=== PATIENT | female | born 1945 | race Caucasian/White ===

== ENCOUNTER 2018-02-27 13:28 | Emergency (ER) | payer OTHER, BC ==
[2018-02-27] MEDS ORDERED: predniSONE 20 MG TAB ONE (13:52)
[2018-02-27] MEDS ORDERED: LEVALBUTEROL 1.25 MG/3 ML NEB ONE (13:52)
[2018-02-27 14:21] LABS: Absolute Lymphocytes (CBC) 1.9 K/uL (0.7-4.9); Absolute Monocytes 0.5 K/uL (0.1-1.3); Absolute Neutrophil 7.8 K/uL (1.8-8.0); Basophils % 0.7 % (0-1.3); Eosinophils % 0.1 % (0-4.4); Hematocrit 39.2 % (36.0-45.0); Lymphocytes % 18.4 % (15.3-44.8); MCH 26.7 pg (27.0-35.0); MCV 80.8 fL (80-100); MPV 8.8 fL (7.6-11.3); Monocytes % 5.3 % (3.3-12.3); RBC Red Blood Cell Count 4.85 M/uL (3.86-4.86)
--- OUTSIDE RECORDS SUMMARY | 2018-02-27 14:28 | XMS REPORT | Continuity of Care Document ---
:1945 Author Organization [facility] Address [address] [place] [address] Phone Unavailable Care Team Providers Name Role Phone KARIME ACEVES Chris Primary Care Physician Insurance Providers Guarantor Gissel Morejon Address [address] [place] [phone] Email NA Payer Medicare Policy Number [id number] Subscriber's Name Gissel Morejon Relationship Self / Same As Patient Group Number NA Group Name NA Payer [facility] Policy Number [id number] Subscriber's Name Gissel Morejon A Relationship Self / Same As Patient Group Number [id number] Group Name MED SUPP/PLAN F Advance Directives Directive Response Recorded Date/Time Advance Directive on File No 02/12/18 9:58am Name of Surrogate/Decision Maker BRIA LINK 02/12/18 10:41am Patient/Family Given Education Material R/T Y - 02/12/18...[place] 02/12/18 10: 40am Directives? Chief Complaint and Reason for Visit Chief Complaint Skin Rash/Abscess/Wound Reason for Visit Skin tear of right forearm without complication Problems Active ProblemsNo active problem information available. Past Problems Medical Problem Onset Date Status Cellulitis Unknown Acute Skin lesion Unknown Acute Skin tear of right forearm without complication Unknown Acute Medications No medication information available. Social History Smoking Status Start Date Stop Date Former smoker Hospital Discharge Instructions No hospital discharge instruction information available. Plan of Care Discharge Date 02/12/18 11:02am Instructions/Education Provided Skin Tear Care, [id number] Forms Provided Portal Welcome Letter Prescriptions See Medication Section Referrals YOLA KARIME Perez Address: [address] [facility] [address] [place] [address] Additional Instructions/Education KEEP AREA TO RIGHT FOREARM CLEAN AND DRY DO NOT PULL OFF STERI STRIPS ALLOW THEM TO FALL OFF ON THEIR OWN. USE TYLENOL OR MOTRIN FOR PAIN DIRECTED. FOLLOW UP WITH A PRIMARY CARE PROVIDER IN 2-3 DAYS RETURN TO THE ER IF YOUR SYMPTOMS WORSEN Functional Status No functional status information available. Allergies, Adverse Reactions, Alerts Allergen Type Severity Reaction Status Last Updated Penicillins ([id number]) Allergy Unknown RASH Active 12/08/16 Immunizations No immunization information available. Vital Signs Acute Vital Signs Vital Response Date/Time Blood Pressure 128/80 mm Hg 02/12/2018 10:39am Pulse Pulse Rate (adult) 85 beats per minute (60 - 100) 02/12/2018 10:39am Respiratory Rate 18 breaths per minute (10 - 24) 02/12/2018 10:39am Temperature Source Oral 02/12/2018 10:39am Height 5 ft 2 in 02/12/2018 9:58am Weight 145 lb 02/12/2018 9:58am Body Mass Index 26.5 kg/m^2 02/12/2018 9:58am Results No relevant diagnostic test, laboratory data and/or discharge summary information available. Procedures No procedure information available. Encounters Encounter Location Arrival/Admit Date Discharge/Depart Date Attending Provider Departed [place] 02/12/18 9:53am 02/12/18 11:02am MICKEY ENCARNACION MD Emergency Room [facility] Recent Diagnosis
--- OUTSIDE RECORDS SUMMARY | 2018-02-27 14:28 | XMS REPORT | Clinical Summary ---
:1945 Author Organization [facility] Address [address] [place] [address] Care Team Providers Name Role Phone Jarocho Bill DO Primary Care Provider Allergies Active Allergy Reactions Severity Noted Date Comments Iodine And Iodide Containing Products Anaphylaxis High 08/03/2017 IV Contrast Penicillins 08/03/2017 Medications Medication Sig Dispensed Refills Start Date End Date Status citalopram (CeleXA) Take 40 mg by 1 07/11/2017 Active 40 MG tablet mouth daily. ADVAIR DISKUS 250-50 INHALE 1 1 06/26/2017 Active mcg/dose DISKUS PUFF(S) 2 TIMES A DAY INHALED 90 DAYS SPIRIVA RESPIMAT 2.5 USE 2 PUFFS 3 07/05/2017 Active mcg/actuation mist ONCE A DAY INHALED cholecalciferol, Take 1,000 0 Active vitamin D3, (VITAMIN Units by mouth D3) 1,000 unit tablet daily. aspirin (ECOTRIN) 81 Take 81 mg by 0 Active MG enteric coated mouth daily. tablet UNABLE TO FIND prevagen (OTC) 0 Active memory loss L.acid/L.casei/B.bif/ Take by mouth. 0 Active B.erin/FOS (PROBIOTIC BLEND ORAL) gabapentin Take 1 capsule 90 capsule 0 09/05/2017 09/12/2017 (NEURONTIN) 300 mg (300 mg total) capsule by mouth 3 (three) times a day for 7 days. acetaminophen Take 2 tablets 30 tablet 0 09/05/2017 09/10/2017 (TYLENOL EXTRA (1,000 mg STRENGTH) 500 MG total) by mouth tablet 3 (three) times a day for 5 days. nicotine (NICODERM Place 1 patch 30 patch 0 09/06/2017 10/06/2017 CQ) 7 mg/24 hr on the skin daily for 30 days. naproxen (NAPROSYN) Take 1 tablet 6 tablet 0 09/05/2017 09/08/2017 500 MG tablet (500 mg total) by mouth 2 (two) times a day with meals for 3 days. gabapentin Take 1 capsule 90 capsule 1 10/12/2017 12/11/2017 (NEURONTIN) 300 mg (300 mg total) capsuleIndications: by mouth 3 Neuropathic pain (three) times a day for 60 days. Active Problems Problem Noted Date Lung nodule 09/04/2017 Encounters Date Type Specialty Care Team Description 10/12/2017 Office Visit Cardiothoracic [facility] Neuropathic pain Surgery MD Candido (Primary Dx) 09/08/2017 Telephone Cardiothoracic Marielena Craig, [place] 09/07/2017 Telephone Cardiothoracic [facility] Surgery MD Candido 09/04/2017 Anesthesia Event Cardiothoracic Charla Coates Surgery 09/04/2017 Surgery Cardiooracic [facility] ROBOTIC ASSISTED Surgery MD Candido THORACOSCOPIC THERAPEUTIC LEFT UPPER LOBE, WEDGE RESECTION, MEDIASTINAL LYMPH NODE DISSECTION 09/04/2017 [facility] Cardiology [facility] Lung nodule - Encounter MD Candido 09/05/2017 08/31/2017 Lab Lab [facility] Lung nodule; MD Candido Pre-op testing 08/31/[address] [facility] Encounter MD Candido [facility] Surgery MD Candido Pre-op testing 08/22/2017 Telephone Cardiothoracic Emma Stubbs[place] 08/18/2017 Orders Only Cardiothoracic Provider, Surgery MD Mickey 08/18/2017 Telephone Cardiothoracic Marielena Craig, Surgery [place] 08/18/2017 Telephone Cardiothoracic Marielena Craig, Surgery [place] 08/16/2017 Telephone Cardiothoracic Emma Stubbs, Surgery [place] 08/08/2017 Telephone Cardiothoracic Marielena Craig, Surgery [place] 08/04/2017 Telephone Cardiothoracic Marielena Craig, Surgery [place] 08/04/2017 Telephone Cardiothoracic Jennifer, Surgery Kim Villa NP 08/04/2017 Orders Only Cardiothoracic Provider, Surgery MD Mickey 08/03/2017 [facility] Pulmonology Ad [facility] Encounter MD Candido 08/03/2017 [facility] Radiology Ad Leon Encounter MD Candido 08/03/2017 [facility] Radiology Ad Leon Encounter MD Candido 08/03/2017 [facility] Radiology Ad Leon Encounter MD Candido 08/03/2017 [facility] Radiology dA Leon Encounter MD Candido 08/03/2017 [facility] Radiology Ad Leon Encounter MD Candido 08/03/2017 [facility] Radiology Ad Leon Encounter MD Candido 08/03/2017 [facility] MD Candido Error) 08/03/2017 [facility] Radiology Ad [facility] Encounter MD Candido 08/03/2017 Office Visit Cardiothoracic [facility] Lung nodule (Primary Dx ); Surgery MD Candido Shortness of breath 08/03/2017 Orders Only Cardiothoracic ProviderEnder MD 07/31/2017 Telephone Cardiothoracic Marielena Craig Surgery [facility] 07/26/2017 Orders Only Cardiothoracic Provider, Surgery MD Mickey after 02/26/2017 Family History Medical History Relation Name Comments Hypertension Father Alzheimer's disease Maternal Grandmother Alzheimer's disease Mother Heart disease Mother Lung cancer Sister Mayra Fung Relation Name Status Comments Father Maternal Grandmother Mother Sister Mayra Fung Social History Tobacco Use Types Packs/Day Years Used Date Former Smoker Cigarettes, Electronic Cigarettes 2 60 Quit: 08/14/2016 Smokeless Tobacco: Never Used Comments: Currently using electronic cigarettes Alcohol Use Drinks/Week oz/Week Comments Yes 10 Glasses of wine 10.2 3 glasses of wine/day and 1 7 Cans of beer beer/day Sex Assigned at Date Recorded Not on file Job Start Date Occupation Industry Not on file Not on file Not on file Travel History Travel Start Travel End No recent travel history available. Last Filed Vital Signs Vital Sign Reading Time Taken Blood Pressure 124/62 10/12/2017 10:42 AM CDT Pulse 127 10/12/2017 10:42 AM CDT Temperature 37.3 C (99.1 F) 10/12/2017 10:42 AM CDT Respiratory Rate 18 10/12/2017 10:42 AM CDT Oxygen Saturation 91% 10/12/2017 10:42 AM CDT Inhaled Oxygen Concentration - - Weight 65.3 kg (144 lb) 10/12/2017 10:42 AM CDT Height 157.5 cm (5' 2") 10/12/2017 10:42 AM CDT Body Mass Index 26.34 10/12/2017 10:42 AM CDT Plan of Treatment Health Maintenance Due Date Last Done Comments BREAST CANCER SCREENING 1996 COLON CANCER SCREENING 1996 SHINGRIX VACCINE (1 of 2) 1996 ZOSTER VACCINE 2006 PNEUMOCOCCAL POLYSACCHARIDE VACCINE AGE 65 AND OVER 2011 PNEUMOCOCCAL-13 2011 INFLUENZA VACCINE 11/01/2017 Procedures Procedure Name Priority Date/Time Associated Comments Diagnosis XR CHEST 1 VW STAT 09/05/2017 6:38 Results for this PORTABLE PM CDT procedure are in the results section. XR CHEST 1 VW Routine 09/05/2017 12:31 Results for this PORTABLE PM CDT procedure are in the results section. XR CHEST 1 VW Routine 09/05/2017 10:32 Results for this PORTABLE AM CDT procedure are in the results section. XR CHEST 1 VW Routine 09/05/2017 6:50 Results for this PORTABLE AM CDT procedure are in the results section. HC COMPLETE BLD COUNT STAT 09/05/2017 6:30 Results for this W/AUTO DIFF AM CDT procedure are in the results section. ZZESTIMATED GFR STAT 09/05/2017 5:32 Results for this AM CDT procedure are in the results section. BASIC METABOLIC PANEL STAT 09/05/2017 5:32 Results for this AM CDT procedure are in the results section. XR CHEST 1 VW STAT 09/04/2017 7:33 Results for this PORTABLE PM CDT procedure are in the results section. BASIC METABOLIC PANEL STAT 09/04/2017 7:27 Results for this PM CDT procedure are in the results section. PHOSPHORUS LEVEL STAT 09/04/2017 7:27 Results for this PM CDT procedure are in the results section. MAGNESIUM LEVEL STAT 09/04/2017 7:27 Results for this PM CDT procedure are in the results section. ZZESTIMATED GFR STAT 09/04/2017 7:27 Results for this PM CDT procedure are in the results section. IONIZED CALCIUM STAT 09/04/2017 7:27 Results for this PM CDT procedure are in the results section. TROPONIN STAT 09/04/2017 7:27 Results for this PM CDT procedure are in the results section. ECG 12-LEAD STAT 09/04/2017 7:26 Results for this PM CDT procedure are in the results section. XR CHEST 1 VW STAT 09/04/2017 4:58 Results for this PORTABLE PM CDT procedure are in the results section. GLUCOSE LEVEL, STAT 09/04/2017 4:13 Results for this SYRINGE PM CDT procedure are in the results section. IONIZED CALCIUM, STAT 09/04/2017 4:13 Results for this ARTERIAL PM CDT procedure are in the results section. HEMOGLOBIN, SYRINGE STAT 09/04/2017 4:13 Results for this PM CDT procedure are in the results section. POTASSIUM, SYRINGE STAT 09/04/2017 4:13 Results for this PM CDT procedure are in the results section. SODIUM LEVEL, SYRINGE STAT 09/04/2017 4:13 Results for this PM CDT procedure are in the results section. ARTERIAL BLOOD GAS STAT 09/04/2017 4:13 Results for this PM CDT procedure are in the results section. GLUCOSE LEVEL, STAT 09/04/2017 3:52 Results for this SYRINGE PM CDT procedure are in the results section. IONIZED CALCIUM, STAT 09/04/2017 3:52 Results for this ARTERIAL PM CDT procedure are in the results section. HEMOGLOBIN, SYRINGE STAT 09/04/2017 3:52 Results for this PM CDT procedure are in the results section. POTASSIUM, SYRINGE STAT 09/04/2017 3:52 Results for this PM CDT procedure are in the results section. SODIUM LEVEL, SYRINGE STAT 09/04/2017 3:52 Results for this PM CDT procedure are in the results section. ARTERIAL BLOOD GAS STAT 09/04/2017 3:52 Results for this PM CDT procedure are in the results section. SURGICAL PATHOLOGY Routine 09/04/2017 3:12 Results for this REQUEST PM CDT procedure are in the results section. SODIUM LEVEL, SYRINGE Routine 09/04/2017 2:43 Results for this PM CDT procedure are in the results section. GLUCOSE LEVEL, Routine 09/04/2017 2:43 Results for this SYRINGE PM CDT procedure are in the results section. IONIZED CALCIUM, Routine 09/04/2017 2:43 Results for this ARTERIAL PM CDT procedure are in the results section. HEMOGLOBIN, SYRINGE Routine 09/04/2017 2:43 Results for this PM CDT procedure are in the results section. POTASSIUM, SYRINGE Routine 09/04/2017 2:43 Results for this PM CDT procedure are in the results section. ARTERIAL BLOOD GAS, Routine 09/04/2017 2:43 Results for this CORRECTED PM CDT procedure are in the results section. MAGNESIUM LEVEL Routine 09/04/2017 2:20 Results for this PM CDT procedure are in the results section. GLUCOSE LEVEL, Routine 09/04/2017 2:20 Results for this SYRINGE PM CDT procedure are in the results section. IONIZED CALCIUM, Routine 09/04/2017 2:20 Results for this ARTERIAL PM CDT procedure are in the results section. HEMOGLOBIN, SYRINGE Routine 09/04/2017 2:20 Results for this PM CDT procedure are in the results section. SODIUM LEVEL, SYRINGE Routine 09/04/2017 2:20 Results for this PM CDT procedure are in the results section. POTASSIUM, SYRINGE Routine 09/04/2017 2:20 Results for this PM CDT procedure are in the results section. ARTERIAL BLOOD GAS, Routine 09/04/2017 2:20 Results for this CORRECTED PM CDT procedure are in the results section. ARTERIAL LINE Routine 09/04/2017 1:57 PM CDT Procedure Note - Mallorie Rubin MD - 09/04/2017 1:57 PM CDT Arterial line Performed by: MALLORIE RUBIN Authorized by: MALLORIE RUBIN Patient Location: Pre-op Start Time: 09/04/2017 12:00 PM End Time: 09/04/2017 12:20 PM Staff: Anesthesiologist: MALLORIE RUBIN Resident/MANAGER CRITICAL CARE/AA: CHARLA COATES Performed by: Resident/MANAGER CRITICAL CARE/AA Pre-procedure: patient identified, IV checked, site and side verified, risks and benefits discussed, procedure verified, surgical consent complete, patient position confirmed, monitors and equipment checked and pre-op evaluation complete MSBT: antiseptic used, all elements of maximal sterile barrier technique followed, hand hygiene performed and solutions labeled Indications: Indications: multiple ABGs and hemodynamic monitoring Anesthesia: Anesthesia: General Procedure Details: Arterial Line placement: Placed pre-induction Line placement site: Radial Line placement side: Right Arterial line gauge: 20 G Number of attempts: 2 Ultrasound guidance used: No Post-procedure: Post-procedure: Sterile dressing applied Post procedure circulation, sensation, movement: Unchanged Patient tolerance: Patient tolerated the procedure well with no immediate complications GA AN ELECTIVE ENDOTRACHEAL AIRWAY Routine 09/04/2017 1:54 PM CDT Procedure Note - Mallorie Rubin MD - 09/04/2017 1:54 PM CDT Airway Date/Time: 09/04/2017 1:42 AM Performed by: MALLORIE RUBIN Authorized by: MALLORIE RUBIN Location: OR Urgency: Elective Difficult Airway: No Anesthesiologist: MALLORIE RUBIN Resident/MANAGER CRITICAL CARE/AA: CANDIDO MONROE Performed by: resident/MANAGER CRITICAL CARE/AA Preoxygenated with 100% O2: Yes C-spine Precautions Maintained Throughout: Yes Mask Ventilation: Easy mask Final Airway Type: Endotracheal airway Final Endotracheal Airway: ETT - double lumen left Cuffed: Yes Technique Used: Direct laryngoscopy Devices/Methods Used in Placement: Intubating stylet Insertion Site: Oral Blade Type: Briana Laryngoscope Blade/Videolaryngoscope Blade Size: 3 ETT Double Lumen (fr): 37 Cuff at minimum occlusion pressure: Yes Measured from: Lips Placement Verified by: CO2 detection, direct visualization, equal breath sounds and fiber optic visualization Laryngoscopic view: Grade I - full view of glottis Rapid Sequence Induction (RSI): No Modified RSI: No Number of Attempts at Approach: 1 ARTERIAL BLOOD GAS, STAT 09/04/2017 1:40 PM Results for this CORRECTED CDT procedure are in the results section. SODIUM LEVEL, SYRINGE STAT 09/04/2017 1:40 PM Results for this CDT procedure are in the results section. POTASSIUM, SYRINGE STAT 09/04/2017 1:40 PM Results for this CDT procedure are in the results section. HEMOGLOBIN, SYRINGE STAT 09/04/2017 1:40 PM Results for this CDT procedure are in the results section. IONIZED CALCIUM, STAT 09/04/2017 1:40 PM Results for this ARTERIAL CDT procedure are in the results section. GLUCOSE LEVEL, SYRINGE STAT 09/04/2017 1:40 PM Results for this CDT procedure are in the results section. ECG 12-LEAD STAT 09/04/2017 12:08 PM Results for this CDT procedure are in the results section. POC GLUCOSE Routine 09/04/2017 12:04 PM Results for this CDT procedure are in the results section. ZZESTIMATED GFR Routine 08/31/2017 12:49 PM Results for this CDT procedure are in the results section. PARTIAL THROMBOPLASTIN Routine 08/31/2017 12:49 PM Lung nodule Results for this TIME (PTT) CDT Pre-op testing procedure are in the results section. PROTHROMBIN TIME WITH Routine 08/31/2017 12:49 PM Lung nodule Results for this INR CDT Pre-op testing procedure are in the results section. COMPREHENSIVE METABOLIC Routine 08/31/2017 12:49 PM Lung nodule Results for this PANEL CDT Pre-op testing procedure are in the results section. TYPE AND SCREEN Routine 08/31/2017 12:49 PM Lung nodule Results for this CDT Pre-op testing procedure are in the results section. HC COMPLETE BLD COUNT Routine 08/31/2017 12:49 PM Lung nodule Results for this W/AUTO DIFF CDT Pre-op testing procedure are in the results section. PET CT WHOLE BODY Routine 08/10/2017 11:30 AM Results for this EXTERNAL STUDY CDT procedure are in the results section. PET CT SKULL BASE MID Routine 08/10/2017 THIGH EXTERNAL STUDY SPIROMETRY PRE AND POST Routine 08/03/2017 2:11 PM Lung nodule Results for this WITH BRONCHILATOR, CDT Shortness of procedure are in DIFFUSION, LUNG VOLUMES breath the results section. CT CHEST EXTERNAL STUDY Routine 07/12/2017 9:59 AM Results for this CDT procedure are in the results section. CT CHEST WO CONTRAST Routine 07/12/2017 after 02/26/2017 Results XR Chest 1 Vw Portable (09/05/2017 6:38 PM CDT)Only the most recent of6 resultswithin the time period is included. Narrative Performed At EXAMINATION:XR CHEST 1 VW PORTABLE [facility] CLINICAL HISTORY:Chest Tube Removal COMPARISON:To a previous study from 1158 hours IMPRESSION: Left pleural tube has been removed. The heart is normal in appearance and some reticular opacities may be present. CT scan of the chest with interstitial lung disease protocol benefit. [facility]-[id number] Procedure Note Hm Interface, Radiology Results Incoming - 09/05/2017 6:44 PM CDT EXAMINATION: XR CHEST 1 VW PORTABLE CLINICAL HISTORY: Chest Tube Removal COMPARISON: To a previous study from 1158 hours IMPRESSION: Left pleural tube has been removed. The heart is normal in appearance and some reticular opacities may be present. CT scan of the chest with interstitial lung disease protocol benefit. [facility]-[id number] Performing Organization Address City/[facility]/Zipcode Phone Number [facility] [address] [place] [address] CBC with platelet and differential (09/05/2017 6:30 AM CDT)Only the most recent of2 resultswithin the time period is included. WBC 9.29 4.50 - 11.00 k/uL [facility] DEPARTMENT OF PATHOLOGY AND GENOMIC MEDICINE RBC 4.22 4.20 - 5.50 m/uL [facility] DEPARTMENT OF PATHOLOGY AND GENOMIC MEDICINE HGB 11.3 (L) 12.0 - 16.0 g/dL [facility] DEPARTMENT OF PATHOLOGY AND GENOMIC MEDICINE HCT 37.8 37.0 - 47.0 % [facility] DEPARTMENT OF PATHOLOGY AND GENOMIC MEDICINE MCV 89.6 82.0 - 100.0 fL [facility] DEPARTMENT OF PATHOLOGY AND GENOMIC MEDICINE MCH 26.8 (L) 27.0 - 34.0 pg [facility] DEPARTMENT OF PATHOLOGY AND GENOMIC MEDICINE MCHC 29.9 (L) 31.0 - 37.0 g/dL [facility] DEPARTMENT OF PATHOLOGY AND GENOMIC MEDICINE RDW - SD 47.9 37.0 - 55.0 fL [facility] DEPARTMENT OF PATHOLOGY AND GENOMIC MEDICINE MPV 10.2 8.8 - 13.2 fL [facility] DEPARTMENT OF PATHOLOGY AND GENOMIC MEDICINE Platelet count 259 150 - 400 k/uL [facility] DEPARTMENT OF PATHOLOGY AND GENOMIC MEDICINE Nucleated RBC 0.00 /100 WBC [facility] DEPARTMENT OF PATHOLOGY AND GENOMIC MEDICINE Neutrophils 66.3 39.0 - 69.0 % [facility] DEPARTMENT OF PATHOLOGY AND GENOMIC MEDICINE Lymphocytes 25.0 25.0 - 45.0 % [facility] DEPARTMENT OF PATHOLOGY AND GENOMIC MEDICINE Monocytes 6.8 0.0 - 10.0 % [facility] DEPARTMENT OF PATHOLOGY AND GENOMIC MEDICINE Eosinophils 1.0 0.0 - 5.0 % [facility] DEPARTMENT OF PATHOLOGY AND GENOMIC MEDICINE Basophils 0.4 0.0 - 1.0 % [facility] DEPARTMENT OF PATHOLOGY AND GENOMIC MEDICINE Immature granulocytes 0.5Comment: 0.0 - 1.0 % [facility] DEPARTMENT OF "Immature PATHOLOGY AND GENOMIC granulocytes" MEDICINE (promyelocytes, myelocytes, metamyelocytes) Specimen Blood Performing Organization Address City/[facility]/Zipcode Phone Number [facility] DEPARTMENT OF PATHOLOGY AND [address] [place] [address] GENOMIC MEDICINE Estimated GFR (09/05/2017 5:32 AM CDT)Only the most recent of3 resultswithin the time period is included. GFR Non Af Amer 49 (A) mL/min/1.73 m2 [facility] DEPARTMENT OF PATHOLOGY AND GENOMIC MEDICINE GFR Af Amer 59 (A) mL/min/1.73 m2 [facility] DEPARTMENT OF Comment: PATHOLOGY AND GENOMIC Chronic kidney disease: <60 mL/min/1.73m2 MEDICINE Kidney failure: <15 mL/min/1.73m2 The estimated GFR is calculated from the IDMS-traceable Modification of Diet in Renal Disease Equation. The accuracy of the calculation is poor when the creatinine is normal. Calculated values >90 mL/min/1.73m2 are not reported. This equation has not been validated in children (<18 years), women, the elderly (>70 years), or ethnic groups other than Caucasians and Americans. Specimen Plasma specimen Performing Organization Address City/State/[facility] Phone Number [facility] DEPARTMENT OF PATHOLOGY AND [address] [place] [phone] [facility] Basic metabolic panel (09/05/2017 5:32 AM CDT)Only the most recent of2 resultswithin the time period is included. Sodium 141 135 - 148 mEq/L [facility] DEPARTMENT OF PATHOLOGY AND GENOMIC MEDICINE Potassium 4.7 3.5 - 5.0 mEq/L [facility] DEPARTMENT OF PATHOLOGY AND GENOMIC MEDICINE Chloride 104 98 - 112 mEq/L [facility] DEPARTMENT OF PATHOLOGY AND GENOMIC MEDICINE CO2 26 24 - 31 mEq/L [facility] DEPARTMENT OF PATHOLOGY AND GENOMIC MEDICINE Anion gap 11@ANIO 7 - 15 mEq/L [facility] DEPARTMENT OF PATHOLOGY AND GENOMIC MEDICINE BUN 8 8 - 23 mg/dL [facility] DEPARTMENT OF PATHOLOGY AND GENOMIC MEDICINE Creatinine 1.1 (H) 0.5 - 0.9 mg/dL [facility] DEPARTMENT OF PATHOLOGY AND GENOMIC MEDICINE Glucose 86 65 - 99 mg/dL [facility] DEPARTMENT OF PATHOLOGY AND GENOMIC MEDICINE Calcium 9.1 8.8 - 10.2 mg/dL [facility] DEPARTMENT OF PATHOLOGY AND GENOMIC MEDICINE Specimen Plasma specimen Performing Organization Address City/State/Zipcode Phone Number [facility] DEPARTMENT OF PATHOLOGY AND [address] [place] [address] Stemnion Troponin (09/04/2017 7:27 PM CDT) Troponin <0.30 0.00 - 0.30 ng/mL [facility] DEPARTMENT OF PATHOLOGY Comment: AND GENOMIC MEDICINE 0.30 - 1.49 ng/mlMay indicate increased risk of acute coronary syndrome. >=1.5 ng/mlConsistent with acute myocardial infarction. The diagnostic value of a single normal or non-diagnostic result is questionable.Serial samples at 2-6 hour intervals are required to rule out acute myocardial injury. Specimen Plasma specimen Narrative Performed At [facility] DEPARTMENT OF PATHOLOGY AND GENOMIC MEDICINE Performing Organization Address City/[facility] Phone Number [facility] DEPARTMENT OF PATHOLOGY AND [address] [place] [address] Phosphorus level (09/04/2017 7:27 PM CDT) Phosphorus 5.4 (H) 2.4 - 4.5 mg/dL [facility] DEPARTMENT OF PATHOLOGY AND GENOMIC MEDICINE Specimen Plasma specimen Narrative Performed At [facility] DEPARTMENT OF PATHOLOGY AND GENOMIC MEDICINE Performing Organization Address [facility] [place] Number [facility] DEPARTMENT OF PATHOLOGY AND [address] [place] [address] Magnesium level (09/04/2017 7:27 PM CDT)Only the most recent of2 resultswithin the time period is included. Magnesium 2.6 (H) 1.6 - 2.4 mg/dL [facility] DEPARTMENT OF PATHOLOGY AND GENOMIC MEDICINE Specimen Plasma specimen Narrative Performed At [facility] DEPARTMENT OF PATHOLOGY AND GENOMIC MEDICINE Performing Organization Address [facility] [place] Number [facility] DEPARTMENT OF PATHOLOGY AND [address] [place] [address] Ionized calcium (09/04/2017 7:27 PM CDT) pH 7.37 [facility] DEPARTMENT OF PATHOLOGY AND GENOMIC MEDICINE Ionized calcium 1.21 1.11 - 1.32 mmol/L [facility] DEPARTMENT OF PATHOLOGY AND GENOMIC MEDICINE Specimen Plasma specimen Narrative Performed At [facility] DEPARTMENT OF PATHOLOGY AND GENOMIC MEDICINE Performing Organization Address [facility] Phone Number [facility] DEPARTMENT OF PATHOLOGY AND [address] [place] [address] ECG 12 lead (09/04/2017 7:26 PM CDT)Only the most recent of2 resultswithin the time period is included. Ventricular rate 69 [facility] Atrial rate 69 [facility] GA interval 154 [facility] QRSD interval 72 [facility] QT interval 422 [facility] QTC interval 452 [facility] P axis 1 57 [facility] QRS axis 1 1 [facility] MUSE T wave axis 25 [facility] MUSE EKG impression Sinus rhythm with premature atrial complexes [facility] MUSE with aberrant conduction-Nonspecific T wave abnormality-Abnormal ECG-No previous ECGs available- Performing Organization Address City/[facility] Phone Number [facility] MUSE [address] [place] [phone] Sodium level, syringe (09/04/2017 4:13 PM CDT)Only the most recent of5 resultswithin the time period is included. Sodium, syringe 137 135 - 148 mEq/L [facility] DEPARTMENT OF PATHOLOGY AND GENOMIC MEDICINE Specimen Blood Performing Organization Address [facility] [facility] Phone Number [facility] DEPARTMENT OF PATHOLOGY AND [address] [place] [address] GENOMIC [facility] Potassium, syringe (09/04/2017 4:13 PM CDT)Only the most recent of5 resultswithin the time period is included. Potassium, syringe 4.2 3.5 - 5.0 mEq/L [facility] DEPARTMENT OF PATHOLOGY AND GENOMIC MEDICINE Specimen Blood Performing Organization Address [facility] Phone Number [facility] DEPARTMENT OF PATHOLOGY AND [address] [place] [address] Ionized calcium, arterial (09/04/2017 4:13 PM CDT)Only the most recent of5 resultswithin the time period is included. Ionized calcium, arterial 1.19 1.11 - 1.32 mmol/L [facility] DEPARTMENT OF PATHOLOGY AND GENOMIC MEDICINE Specimen Blood Performing Organization Address [facility] Number [facility] DEPARTMENT OF PATHOLOGY AND [address] [place] [address] GENOMIC MEDICINE Hemoglobin, syringe (09/04/2017 4:13 PM CDT)Only the most recent of5 resultswithin the time period is included. Hemoglobin, syringe 10.8 (L) 12.0 - 16.0 g/dL [facility] DEPARTMENT OF PATHOLOGY AND GENOMIC MEDICINE Specimen Blood Performing Organization Address [facility] Phone Number [facility] DEPARTMENT OF PATHOLOGY AND [address] [place] [address] GENOMIC [facility] Glucose level, syringe (09/04/2017 4:13 PM CDT)Only the most recent of5 resultswithin the time period is included. Glucose, syringe 93 65 - 99 mg/dL [facility] DEPARTMENT OF PATHOLOGY AND GENOMIC MEDICINE Specimen Blood Performing Organization Address [facility] Phone Number [facility] DEPARTMENT OF PATHOLOGY AND [address] [place] [address] Arterial blood gas (09/04/2017 4:13 PM CDT)Only the most recent of2 resultswithin the time period is included. pH, arterial 7.19 (LL) 7.35 - 7.45 [facility] DEPARTMENT OF PATHOLOGY AND GENOMIC MEDICINE pCO2, arterial 73 (HH) 35 - 45 mmHg [facility] DEPARTMENT OF PATHOLOGY AND GENOMIC MEDICINE pO2, arterial 396 (H) 80 - 90 mmHg [facility] DEPARTMENT OF PATHOLOGY AND GENOMIC MEDICINE Bicarbonate, arterial 26.9 21.0 - 28.0 mmol/L [facility] DEPARTMENT OF PATHOLOGY AND GENOMIC MEDICINE Base excess, arterial -2 -2 - 2 mEq/L [facility] DEPARTMENT OF PATHOLOGY AND GENOMIC MEDICINE O2 saturation, arterial 99 95 - 100 % [facility] DEPARTMENT OF PATHOLOGY AND GENOMIC MEDICINE Specimen Blood Performing Organization Address [facility] Phone Number [facility] DEPARTMENT OF PATHOLOGY AND [address] [place] [address] GENOMIC [facility] Surgical pathology request (09/04/2017 3:12 PM CDT) [facility] DEPARTMENT OF PATHOLOGY AND GENOMIC MEDICINE Surgical pathology report See link below for PDF [facility] DEPARTMENT OF Lab Report PATHOLOGY AND GENOMIC MEDICINE Result status This is Final Report to [facility] DEPARTMENT OF [id number] PATHOLOGY AND GENOMIC MEDICINE Performing Organization Address [facility] Phone Number [facility] DEPARTMENT OF PATHOLOGY AND [address] [place] [address] Arterial blood gas, corrected (09/04/2017 2:43 PM CDT)Only the most recent of3 resultswithin the time period is included. pH, arterial 7.33 (L) 7.35 - 7.45 [facility] DEPARTMENT OF PATHOLOGY AND GENOMIC MEDICINE pCO2, arterial 47 (H) 35 - 45 mmHg [facility] DEPARTMENT OF PATHOLOGY AND GENOMIC MEDICINE pO2, arterial 222 (H) 80 - 90 mmHg [facility] DEPARTMENT OF PATHOLOGY AND GENOMIC MEDICINE Temperature, Celsius 36.9 Degrees C [facility] DEPARTMENT OF PATHOLOGY AND GENOMIC MEDICINE O2 saturation, arterial 99 95 - 100 % [facility] DEPARTMENT OF PATHOLOGY AND GENOMIC MEDICINE pH, arterial corrected 7.34 [facility] DEPARTMENT OF PATHOLOGY AND GENOMIC MEDICINE pCO2, arterial corrected 46 mmHg [facility] DEPARTMENT OF PATHOLOGY AND GENOMIC MEDICINE pO2, arterial corrected 222 mmHg [facility] DEPARTMENT OF PATHOLOGY AND GENOMIC MEDICINE Base excess, arterial -1 -2 - 2 mEq/L [facility] DEPARTMENT OF PATHOLOGY AND GENOMIC MEDICINE Specimen Blood Performing Organization Address [facility] Phone Number [facility] DEPARTMENT OF PATHOLOGY AND [address] [place] [phone] [facility] MEDICINE POC glucose (09/04/2017 12:04 PM CDT) POC glucose 77 65 - 99 mg/dL [facility] DEPARTMENT OF PATHOLOGY AND Comment: GENOMIC MEDICINE Meter ID: [id number] [employer] Manager: Tyrone Philip Performing Organization Address [facility] Phone Number [facility] DEPARTMENT OF PATHOLOGY AND [address] [place] [id number] [place] [address] Partial thromboplastin time, activated (08/31/2017 12:49 PM CDT) PTT 37.1 (H) 23.0 - 36.0 sec [facility] DEPARTMENT OF PATHOLOGY Comment: AND [facility] PTT therapeutic range for unfractionated heparin is 61.0-112.0 seconds which corresponds to Anti-Xa 0.3-0.7 U/ml. Specimen Blood Performing Organization Address [facility] Phone Number [facility] DEPARTMENT OF PATHOLOGY AND [address] [place] [address] [facility] Prothrombin time with INR (08/31/2017 12:49 PM CDT) Prothrombin time 13.3 12.0 - 15.0 sec [facility] DEPARTMENT OF PATHOLOGY AND GENOMIC MEDICINE INR 1.0 [facility] DEPARTMENT OF Comment: PATHOLOGY AND GENOMIC The International Normalized Ratio (INR) is a therapeutic MEDICINE monitoring tool for patients who are stable on oral anticoagulant therapy. An INR of 2.0-3.0 is suggested for deep vein thrombosis/pulmonary embolism. Specimen Blood Performing Organization Address City/[facility] Phone Number [facility] DEPARTMENT OF PATHOLOGY AND [address] [place] [id number] GENOMIC MEDICINE Type and screen (08/31/2017 12:49 PM CDT) ABO grouping A [facility] DEPARTMENT OF PATHOLOGY AND GENOMIC MEDICINE Rh type POS [facility] DEPARTMENT OF PATHOLOGY AND GENOMIC MEDICINE Antibody screen (gel) NEG [facility] DEPARTMENT OF PATHOLOGY AND GENOMIC MEDICINE Specimen Blood Performing Organization Address City/[facility] Phone Number [facility] DEPARTMENT OF PATHOLOGY AND [address] [place] [address] [facility] MEDICINE Comprehensive metabolic panel (08/31/2017 12:49 PM CDT) Sodium 140 135 - 148 mEq/L [facility] DEPARTMENT OF PATHOLOGY AND GENOMIC MEDICINE Potassium 3.6 3.5 - 5.0 mEq/L [facility] DEPARTMENT OF PATHOLOGY AND GENOMIC MEDICINE Chloride 100 98 - 112 mEq/L [facility] DEPARTMENT OF PATHOLOGY AND GENOMIC MEDICINE CO2 28 24 - 31 mEq/L [facility] DEPARTMENT OF PATHOLOGY AND GENOMIC MEDICINE Anion gap 12@ANIO 7 - 15 mEq/L [facility] DEPARTMENT OF PATHOLOGY AND GENOMIC MEDICINE BUN 9 8 - 23 mg/dL [facility] DEPARTMENT OF PATHOLOGY AND GENOMIC MEDICINE Creatinine 1.0 (H) 0.5 - 0.9 mg/dL [facility] DEPARTMENT OF PATHOLOGY AND GENOMIC MEDICINE Glucose 123 (H) 65 - 99 mg/dL [facility] DEPARTMENT OF PATHOLOGY AND GENOMIC MEDICINE Calcium 8.7 (L) 8.8 - 10.2 mg/dL [facility] DEPARTMENT OF PATHOLOGY AND GENOMIC MEDICINE Protein 6.8 6.3 - 8.3 g/dL [facility] DEPARTMENT OF Comment: PATHOLOGY AND GENOMIC 4.6-7.0 g/dL MEDICINE 1 week 4.4-7.6 g/dL 7 months-1year5.1-7.3 g/dL 1-2 years5.6-7.5 g/dL >3 years6.0-8.0 g/dL 18-150 6.3-8.3 g/dL Albumin 2.5 (L) 3.5 - 5.0 g/dL [facility] DEPARTMENT OF PATHOLOGY AND GENOMIC MEDICINE A/G ratio 0.6 (L) 0.7 - 3.8 [facility] DEPARTMENT OF PATHOLOGY AND GENOMIC MEDICINE Alkaline phosphatase 90 35 - 104 U/L [facility] DEPARTMENT OF PATHOLOGY AND GENOMIC MEDICINE AST 13 10 - 35 U/L [facility] DEPARTMENT OF PATHOLOGY AND GENOMIC MEDICINE ALT 7 5 - 50 U/L [facility] DEPARTMENT OF PATHOLOGY AND GENOMIC MEDICINE Total bilirubin <0.2 0.0 - 1.2 mg/dL [facility] DEPARTMENT OF PATHOLOGY AND GENOMIC MEDICINE Specimen Plasma specimen Performing Organization Address City/[facility]/Zipcode Phone Number [facility] DEPARTMENT OF PATHOLOGY AND [address] [place] [address] [facility] MEDICINE PET/CT Whole Body External Study (08/10/2017 11:30 AM CDT) Narrative Performed At This exam was not acquired at a [facility] facility and has not been [facility] interpreted by a [employer] Provider.The exam was imported into our imaging system for comparisons purposes. Performing Organization Address City/State/Zipcode Phone Number [facility] [address] [place] [address] PET/CT Skull Base Mid Thigh External Study (08/10/2017) Narrative Performed At Spirometry pre & post w/ bronchodilator, diffusion, lung volumes (2017 2:11 PM CDT) FEV1 Post 0.83 1.50 - 2.60 L [facility] FEV1/FVC % Post 43.78 65.93 - 85.52 % [facility] FVC Post 1.90 2.07 - 3.37 L [facility] PEF Post 2.39 3.66 - 6.87 L/s [facility] FEF 25-75% Post 0.26 0.58 - 2.90 L/s [facility] FEV1 Pre 0.80 1.50 - 2.60 L [facility] FEV1/FVC % Pre 42.09 65.93 - 85.52 % [facility] FVC Pre 1.90 2.07 - 3.37 L [facility] PEF Pre 2.22 3.66 - 6.87 L/s [facility] FEF 25-75% Pre 0.26 0.58 - 2.90 L/s [facility] DLCO Pre 8.01 ml/(min*mmHg) [facility] DL/VA Pre 2.33 ml/(min*mmHg*L) [facility] VA SB Pre 3.43 L [facility] DLCOc Pre 8.01 ml/(min*mmHg) [facility] KCOc SB Pre 2.33 ml/(min*mmHg*L) [facility] Hb Pre 13.40 g(Hb)/dL [facility] R0.5IN Pre 9.03 cmH2O*s/L [facility] FRCpl Pre 2.73 L [facility] RV Pre 2.54 L [facility] TLC Pre 4.34 L [facility] RV % TLC Pre 58.64 % [facility] VC Pre 1.79 L [facility] ERV Pre 0.18 L [facility] IC Pre 1.61 L [facility] sR0.5IN Pre 27.98 cmH2O*s [facility] Raw Pre 9.30 cmH2O*s/L [facility] sGaw Predicted 0.03 1/(cmH2O*s) [facility] FEV1 Predicted 2.05 [facility] FEV1 LLN 1.50 [facility] FEV1 % Pre of Predicted 39.0 % [facility] FEV1 % Post of Predicted 40.5 % [facility] FEV1 % Change 3.8 % [facility] FVC Predicted 2.72 [facility] FVC LLN 2.07 [facility] FVC % Pre of Predicted 69.8 % [facility] FVC % Post of Predicted 69.7 % [facility] FVC % Change -0.2 % [facility] FEV1/FVC % Predicted 76 [facility] FEV1/FVC % LLN 66 [facility] FEV1/FVC % Pre of Predicted 55.6 % [facility] FEV1/FVC % Post of Predicted 57.8 % [facility] FEV1/FVC % Change 4.0 % [facility] FEF 25-75% Predicted 1.74 [facility] FEF 25-75% LLN 0.58 [facility] FEF 25-75% % Pre of Predicted 15.1 % [facility] FEF 25-75% % Post of Predicted 15.2 % [facility] FEF 25-75% % Change 1.1 % [facility] PEF Predicted 5.27 [facility] PEF LLN 3.66 [facility] PEF % Pre of Predicted 42.2 % [facility] PEF % Post of Predicted 45.4 % [facility] PEF % Change 7.6 % [facility] VC Predicted 2.72 [facility] VC LLN 2.07 [facility] VC % Pre of Predicted 66.0 % [facility] ERV Predicted 0.61 [facility] ERV LLN 0.61 [facility] ERV % Pre of Predicted 29.9 % [facility] FRCpl % Predicted 2.60 [facility] FRCpl % LLN 1.78 [facility] FRCpl % Pre of Predicted 104.9 % [facility] IC Predicted 1.74 [facility] IC LLN 1.74 [facility] IC % Pre of Predicted 92.5 % [facility] RV Predicted 1.99 [facility] RV LLN 1.41 [facility] RV % Pre of Predicted 128.1 % [facility] RV % TLC Predicted 43 [facility] RV % TLC LLN 34 [facility] RV % TLC % Pre of Predicted 136.1 % [facility] TLC Predicted 4.60 [facility] TLC LLN 3.62 [facility] TLC % Pre of Predicted 94.2 % [facility] Raw Predicted 3.06 [facility] Raw LLN 3.06 [facility] Raw % Pre of Predicted 304.1 % [facility] R0.5IN Predicted 3.06 [facility] R0.5IN LLN 3.06 [facility] R0.5IN % Pre of Predicted 295.1 % [facility] sGaw Predicted 0.10 [facility] sGaw LLN 0.10 [facility] sGaw % Pre of Predicted 34.0 % [facility] DLCO Predicted 19.58 [facility] DLCO LLN 13.08 [facility] DLCO % Pre of Predicted 40.9 % [facility] DLCOc Predicted 19.58 [facility] DLCOc LLN 13.08 [facility] DLCOc % Pre of Predicted 40.9 % [facility] DL/VA Predicted 4.36 [facility] DL/VA LLN 3.05 [facility] DL/VA % Pre of Predicted 53.5 % [facility] KCOc SB Predicted 4.36 [facility] KCOc SB LLN 3.05 [facility] KCOc SB % Pre of Predicted 53.5 % [facility] VA SB Predicted 4.73 [facility] VA SB LLN 3.63 [facility] VA SB % Pre of Predicted 72.5 % [facility] MIP Predicted 50.82 [facility] MIP LLN 23.20 [facility] MEP Predicted 63.09 [facility] MEP LLN 20.61 [facility] MVV Predicted 74 [facility] MVV LLN 63 [facility] Performing Organization Address [facility] Phone Number [facility] [address] [place] [address] CT Chest External Study (07/12/2017 9:59 AM CDT) Narrative Performed At This exam was not acquired at a [facility] facility and has not been [facility] interpreted by a [employer] Provider.The exam was imported into our imaging system for comparisons purposes. Performing Organization Address [facility] Phone Number [facility] [address] [place] [address] CT Chest Wo Contrast (07/12/2017) Narrative Performed At after 02/26/2017 Insurance Payer Benefit Plan / Group Subscriber ID Type Phone Address MEDICARE MEDICARE PART A AND B xxxxxxxxxx Medicare [place], [place] BCBS BCBS CHOICE PPO/FEDERAL EMPL PPO xxxxxxxxxxxx PPO Advance Directives Patient has advance care planning documents on file. For more information, please contact:Chapo Vidal[address] [place] [address]
[2018-02-27 14:31] LABS: Protime INR 1.01
[2018-02-27 14:38] LABS: ALT/SGPT 19 U/L (12-78); AST/SGOT 16 U/L (15-37); Albumin 2.7 g/dL (3.4-5.0); Alkaline Phosphatase 96 U/L (45-117); BUN Blood Urea Nitrogen 17 mg/dL (7-18); Bicarbonate 25 mmol/L (21-32); Bilirubin Direct < 0.1 mg/dL (0-0.2); Bilirubin Total 0.2 mg/dL (0.2-1.0); Glucose Level 110 mg/dL (74-106); Magnesium 2.2 mg/dL (1.8-2.4); NT PRO-BNP 63 pg/mL (<125); Potassium 3.9 mmol/L (3.5-5.1); Protein, Total 6.4 g/dL (6.4-8.2); Sodium Level 140 mmol/L (136-145); Troponin (Emerg Dept Use Only) < 0.02 ng/mL (0.0-0.045)
--- NOTE | 2018-02-27 16:28 | ER ---
Nurse's Notes [facility] Name: Gissel Morejon Age: 72 yrs Sex: Female : 1945 Arrival Date: 02/27/2018 Time: 13:30 Bed 23 Private MD: Jer Soriano K Diagnosis: Chronic obstructive pulmonary disease with (acute) exacerbation Presentation: 02/27 13:42 Presenting complaint: Patient states: trouble breathing x 2 days. Transition of care: dm5 patient was not received from another setting of care. Onset of symptoms was February 24, 2018. 13:42 Method Of Arrival: Ambulatory dm5 13:42 Acuity: GERMAN 3 dm5 14:00 Risk Assessment: Do you want to hurt yourself or someone else? Patient reports no jl7 desire to harm self or others. Initial Sepsis Screen: Does the patient meet any 2 criteria? No. Patient's initial sepsis screen is negative. Does the patient have a suspected source of infection? No. Patient's initial sepsis screen is negative. Care prior to arrival: None. Historical: - Allergies: 13:44 IV iodine contrast; dm5 13:44 PENICILLINS; dm5 - PMHx: 13:44 Asthma; Emphysema; dm5 - Immunization history:: Adult Immunizations unknown. - Social history:: Smoking status: unknown. - Ebola Screening: : No symptoms or risks identified at this time. Screenin:07 Abuse screen: Denies threats or abuse. Denies injuries from another. Nutritional jl7 screening: No deficits noted. Tuberculosis screening: No symptoms or risk factors identified. Fall Risk IV access (20 points). Total Landaverde Fall Scale indicates No Risk (0-24 pts). Assessment: 13:45 General: Appears distressed, uncomfortable, ill, Behavior is cooperative, anxious. jl7 Pain: Denies pain. Neuro: Level of Consciousness is awake, alert, obeys commands, Oriented to person, place, time, situation. Cardiovascular: Rhythm is sinus rhythm. Respiratory: Airway is patent Respiratory effort is even, labored, Respiratory pattern is symmetrical, tachypnea Breath sounds with wheezes bilaterally. Derm: Skin is pink, warm \T\ dry. 14:45 Reassessment: Patient appears in no apparent distress at this time. Patient and/or jl7 family updated on plan of care and expected duration. Pain level reassessed. Patient is alert, oriented x 3, equal unlabored respirations, skin warm/dry/pink. Patient states feeling better. Patient states symptoms have improved. 16:35 Reassessment: Patient appears in no apparent distress at this time. Patient and/or jl7 family updated on plan of care and expected duration. Pain level reassessed. Patient is alert, oriented x 3, equal unlabored respirations, skin warm/dry/pink. Patient denies pain at this time. Vital Signs: 13:44 BP 114 / 77; Pulse 95; Resp 21; Temp 98.1; Pulse Ox 96% on R/A; dm5 14:07 BP 110 / 71; Pulse 99; Resp 22; Pulse Ox 100% on Nebulizer Mask; jl7 14:59 BP 118 / 65; Pulse 109; Resp 19 S; Pulse Ox 97% on R/A; jl7 15:56 BP 119 / 77; Pulse 99; Resp 22; Pulse Ox 96% on R/A; Pain 0/10; jl7 16:35 BP 121 / 64; Pulse 90; Resp 20 S; Pulse Ox 97% on R/A; jl7 ED Course: 13:30 Patient arrived in ED. rg4 13:30 Jer Soriano MD is Private Physician. rg4 13:33 [facility] 13:33 Cem Lay MD is Attending Physician. jmm 13:40 Bacilio Williamson RN is Primary Nurse. jl7 13:43 Triage completed. dm5 13:44 Arm band placed on right wrist. Patient placed in an exam room, on a stretcher, on dm5 oxygen, on potline monitor, on pulse oximetry. 14:06 EKG done, by diesel truck technician. reviewed by Loco TORRES. at1 14:07 Patient has correct armband on for positive identification. Placed in gown. Bed in low jl7 position. Call light in reach. Side rails up X 1. classroom monitor on. Pulse ox on. NIBP on. Warm blanket given. 14:07 Initial lab(s) drawn, by me, sent to lab. Inserted saline lock: 22 gauge in left hand, jl7 using aseptic technique. Blood collected. 15:47 XRAY Chest (1 view) In Process Unspecified. EDMS 16:27 Jer Soriano MD is Referral Physician. [facility] 16:35 No provider procedures requiring assistance completed. IV discontinued, intact, jl7 bleeding controlled, No redness/swelling at site. Pressure dressing applied. Administered Medications: 13:45 Drug: predniSONE 60 mg Route: PO; jl7 14:45 Follow up: Response: No adverse reaction; Marked relief of symptoms jl7 13:48 Drug: Xopenex (3) 1.25 mg Route: Inhalation; jl7 14:45 Follow up: Response: No adverse reaction; Marked relief of symptoms jl7 14:03 Not Given (Other Intervention Used): SOLU-Medrol 125 mg IVP once jl7 Outcome: 16:27 Discharge ordered by MD. [facility] 16:35 Discharged to home ambulatory, with family. jl7 16:35 Condition: stable 16:35 Discharge instructions given to patient, family, Instructed on discharge instructions, follow up and referral plans. medication usage, Demonstrated understanding of instructions, follow-up care, medications, Prescriptions given X 3. 16:38 Patient left the ED. jl7 Signatures: Dispatcher [employer] EDBrii Monique, RN RN dm5 Loco Hoff PA PA Mendy Harris, budget coordinator EKG Tat1 Nisa Baptiste4 Bacilio Williamson, RN RN jl7
--- NOTE | 2018-02-27 16:28 | EDPHYS ---
Physician Documentation [facility] Name: Gissel Morejon Age: 72 yrs Sex: Female : 1945 Arrival Date: 02/27/2018 Time: 13:30 Bed 23 Private MD: Jer Soriano K ED Physician Cem Lay HPI: 02/27 13:33 This 72 yrs old Female presents to ER via Ambulatory with complaints of jmm Asthma Exacerbation, Breathing Difficulty. 13:33 The patient presents to the emergency department with wheezing, Current therapy: jmm steroid inhaler. Onset: The symptoms/episode began/occurred gradually, 3 day(s) ago. Modifying factors: The symptoms are alleviated by nothing, the symptoms are aggravated by cold weather. Associated signs and symptoms: Pertinent negatives: chest pain, fever. This is a 72 year old female with a history of asthma and emphysema that presents to the ED with shortness of breath and wheezing which has not resolved with home medication. The patient states her home inhaled steroids are not allowing for relief. Patient attributes this to weather change. . Historical: - Allergies: 13:44 IV iodine contrast; dm5 13:44 PENICILLINS; dm5 - PMHx: 13:44 Asthma; Emphysema; dm5 - Immunization history:: Adult Immunizations unknown. - Social history:: Smoking status: unknown. - Ebola Screening: : No symptoms or risks identified at this time. ROS: 13:33 Constitutional: Negative for fever, chills, and weight loss. jmm 13:33 Abdomen/GI: Negative for abdominal pain, nausea, vomiting, diarrhea, and constipation, Back: Negative for injury and pain. 13:33 Respiratory: Positive for shortness of breath, at rest. 13:33 All other systems are negative. Exam: 13:33 Head/Face: atraumatic. Eyes: EOMI, no conjunctival erythema appreciated ENT: Moist jmm Mucus Membranes Neck: Trachea midline, Supple Chest/axilla: Normal chest wall appearance and motion. 13:33 Abdomen/GI: Non distended, soft Back: Normal ROM Skin: General appearance color normal MS/ Extremity: Moves all extremities, no obvious deformities appreciated, no edema noted to the lower extremities Neuro: Awake and alert, normal gait Psych: Behavior is normal, Mood is normal, Patient is cooperative and pleasant 13:33 Constitutional: The patient appears alert, awake, anxious, uncomfortable. 13:33 Cardiovascular: Rate: normal, Rhythm: regular, Pulses: no pulse deficits are appreciated. 13:33 Respiratory: mild respiratory distress is noted, Respirations: labored breathing, that is mild, Breath sounds: wheezing: that is moderate, is scattered. Vital Signs: 13:44 BP 114 / 77; Pulse 95; Resp 21; Temp 98.1; Pulse Ox 96% on R/A; dm5 14:07 BP 110 / 71; Pulse 99; Resp 22; Pulse Ox 100% on Nebulizer Mask; jl7 14:59 BP 118 / 65; Pulse 109; Resp 19 S; Pulse Ox 97% on R/A; jl7 15:56 BP 119 / 77; Pulse 99; Resp 22; Pulse Ox 96% on R/A; Pain 0/10; jl7 16:35 BP 121 / 64; Pulse 90; Resp 20 S; Pulse Ox 97% on R/A; jl7 MDM: 13:42 Patient medically screened. [facility] 16:27 Data reviewed: vital signs, nurses notes. Counseling: I had a detailed discussion with phillip the patient and/or guardian regarding: the historical points, exam findings, and any diagnostic results supporting the discharge/admit diagnosis, radiology results, the need for outpatient follow up, to return to the emergency department if symptoms worsen or persist or if there are any questions or concerns that arise at home. Refusal of service: The patient/guardian displays adequate decision making capability and despite a detailed discussion of alternatives, benefits, risks, and consequences refuses: Admission to the hospital for further work-up and treatment. 16:27 ED course: Patient' symptoms improved dramatically after prednisone and xopenex nebs. phillip Due to the patient's initial presentation, I recommended observation. The patient declined but stated if symptoms returned she would return to the ED. Family stated they would watch the patient this evening. The patient has a cardiology follow up tomorrow. . 02/27 13:33 Order name: Basic Metabolic Panel; Complete Time: 14:49 [facility] 02/27 13:33 Order name: CBC with Diff; Complete Time: 14:37 [facility] 02/27 13:33 Order name: LFT's; Complete Time: 14:49 [facility] 02/27 13:33 Order name: Magnesium; Complete Time: 14:49 [facility] 02/27 13:33 Order name: NT PRO-BNP; Complete Time: 14:49 [facility] 02/27 13:33 Order name: PT-INR; Complete Time: 14:49 [facility] 02/27 13:33 Order name: Troponin (emerg Dept Use Only); Complete Time: 14:49 [facility] 02/27 13:33 Order name: XRAY Chest (1 view) [facility] 02/27 13:33 Order name: EKG; Complete Time: 13:34 [facility] 02/27 13:33 Order name: Cardiac monitoring; Complete Time: 14:04 [facility] 02/27 13:33 Order name: EKG - Nurse/Tech; Complete Time: 14:04 [facility] 02/27 13:33 Order name: IV Saline Lock; Complete Time: 14:04 [facility] 02/27 13:33 Order name: Labs collected and sent; Complete Time: 14:04 [facility] 02/27 13:33 Order name: O2 Per Protocol; Complete Time: 14:03 [facility] 02/27 13:33 Order name: O2 Sat Monitoring; Complete Time: 14:03 [facility] Administered Medications: 13:45 Drug: predniSONE 60 mg Route: PO; [facility] 14:45 Follow up: Response: No adverse reaction; Marked relief of symptoms [facility] 13:48 Drug: Xopenex (3) 1.25 mg Route: Inhalation; [facility] 14:45 Follow up: Response: No adverse reaction; Marked relief of symptoms [facility] 14:03 Not Given (Other Intervention Used): SOLU-Medrol 125 mg IVP once jl7 Disposition: 18:32 Co-signature as Attending Physician, Cem Lay MD. rn Disposition: 02/27/18 16:27 Discharged to Home. Impression: Chronic obstructive pulmonary disease with (acute) exacerbation. - Condition is Stable. - Discharge Instructions: Chronic Obstructive Pulmonary Disease Exacerbation. - Prescriptions for Xopenex HFA 45 mcg/actuation Inhalation HFA aerosol inhaler - inhale 2 puff by INHALATION route every 4 hours; 1 Container. Prednisone 20 mg Oral Tablet - take 3 tablet by ORAL route once daily for 5 days; 15 tablet. Zithromax Z- Johnny 250 mg Oral Tablet - take 1 tablet by ORAL route as directed for 5 days Day 1 - take two (2) tablets one time. Day 2, 3, 4 , 5 take one (1) tablet once daily.; 6 tablet. - Medication Reconciliation Form, Thank You Letter, Antibiotic Education, Prescription Opioid Use form. - Follow up: Jer Soriano MD; When: 2 - 3 days; Reason: Recheck today's complaints, Continuance of care, Re-evaluation by your physician. Signatures: Dispatcher [employer] [facility] Brii Birmingham, RN RN dm5 Loco Hoff PA PA jmm Nieto, Roman, MD MD rn Leal, Jahala, RN RN jl7 Corrections: (The following items were deleted from the chart) 15:16 13:43 BiPap ([employer] Only)+[email or web address] ordered. [facility] 16:38 16:27 02/27/2018 16:27 Discharged to Home. Impression: Chronic obstructive pulmonary jl7 disease with (acute) exacerbation. Condition is Stable. Forms are Medication Reconciliation Form, Thank You Letter, Antibiotic Education, Prescription Opioid Use. Follow up: Jer Soriano; When: 2 - 3 days; Reason: Recheck today's complaints, Continuance of care, Re-evaluation by your physician. phillip
[2018-02-27 16:56] VITALS: TEMP 98.1
[2018-02-27 17:00] VITALS: BP 121/64; O2SAT 97
--- NOTE | 2018-02-28 07:11 | EKG ---
Test Date: 2018-02-27 Test Time: 14:03:25 Professor Of Communication And Writing: ERNST MEASUREMENT RESULTS: Intervals: Rate: 98 ID: [id number] QRSD: 70 QT: 362 QTc: 462 [place]: P: 50 ID: [id number] QRS: -29 T: -3 INTERPRETIVE STATEMENTS: Normal sinus rhythm Normal ECG Compared to ECG 07/26/2016 12:54:26 no significant change from previous ECG Electronically Signed On 02-28-18 07:11:02 DRAWING IN MACHINE TENDER HELPER by Omer [place]
--- NOTE | 2018-02-28 08:37 | RAD REPORT ---
EXAM DESCRIPTION: RAD - Chest Single View - 02/27/2018 9:38 pm CLINICAL HISTORY: Emphysema an asthma history, difficulty breathing x2 days COMPARISON: Chest exam September 18 and July 2016 TECHNIQUE: AP portable chest image was obtained 1456 hour . FINDINGS: Patient has a baseline of chronic interstitial lung disease. Focally more prominent pleura l and parenchymal chronic opacification present in the left base. Left base findings have diminished in prominence from the comparison imaging. Old rib trauma noted on the left. Heart and vasculature ar e normal. No pneumothorax. No new or enlarging pleural effusion. No acute bony abnormality seen. No a cute aortic findings suspected. IMPRESSION: Chronic pleural and parenchymal disease present similar or less prominent than prior rebeca ging. No new or progressive finding identifiable. Final report was delayed due to technical malfunction.
== END 2018-02-27 16:38 | disposition home or self-care (01) ==
LOC: ER 13:28
DX: J44.1 Chronic obstructive pulmonary disease with (acute) exacerbation (principal); Z88.0 Allergy status to penicillin; Z91.041 Radiographic dye allergy status
CPT/HCPCS: 36415; 71045; 80048; 80076; 83735; 83880; 84484; 85025; 85610; 93005; 99285; J7512

== ENCOUNTER 2019-03-13 16:51 | Emergency (ER) | payer OTHER, BC ==
[2019-03-13] MEDS ORDERED: METHYLPREDNISOLONE 125 MG INJ ONE (17:18)
[2019-03-13] MEDS ORDERED: Magnesium Sulfate 2gm IVPB 2 G/50 ML BAG IV ONE (17:18)
[2019-03-13] MEDS ORDERED: ALBUTEROL 2.5 MG/3 ML NEB SOL ONE ×2 (17:18→18:32)
[2019-03-13] MEDS ORDERED: IPRATROPIUM BROM 0.5MG/2.5ML ONE (17:18)
[2019-03-13 17:27] LABS: Absolute Lymphocytes (CBC) 2.1 K/uL (0.7-4.9); Basophils % 1.1 % (0-1.3); Lymphocytes % 23.2 % (15.3-44.8); MPV 8.8 fL (7.6-11.3); RBC Red Blood Cell Count 5.61 M/uL (3.86-4.86)
[2019-03-13 17:46] LABS: Potassium 3.5 mmol/L (3.5-5.1)
--- NOTE | 2019-03-13 18:10 | RAD REPORT ---
EXAM DESCRIPTION: RAD - Chest Pa And Lat (2 Views) - 03/13/2019 6:04 pm CLINICAL HISTORY: Cough;COPD;Congestion Chest pain. COMPARISON: Chest Single View dated 02/27/2018; Chest Pa And Lat (2 Views) dated 09/18/2017; Abdomen 1 View (KUB) dated 01/16/2017; Chest Single View dated 07/26/2016 FINDINGS: Emphysematous changes are present throughout the lungs. Vague opacity is present in the po sterior gutter, suspicious for mild infiltrate. The heart is normal in size. No displaced fractures.
[2019-03-13] MEDS ORDERED: AZITHROMYCIN IV 500 MG in NA CHLORIDE 0.9% 250 ML IVPB ONE (19:00)
--- NOTE | 2019-03-13 19:07 | ER ---
Nurse's Notes [facility] Name: Gissel Morejon Age: 74 yrs Sex: Female : 1945 Arrival Date: 03/13/2019 Time: 16:54 Bed 6 Private MD: Jarocho Bill Diagnosis: Pneumonia, unspecified organism;Chronic obstructive pulmonary disease with (acute) exacerbation Presentation: 03/13 16:56 Presenting complaint: Productive cough with greenish-yellow sputum and worsening SOB x hb 1 week. Transition of care: patient was not received from another setting of care. Onset of symptoms was March 07, 2019. Risk Assessment: Do you want to hurt yourself or someone else? Patient reports no desire to harm self or others. Care prior to arrival: None. 16:56 Method Of Arrival: Wheelchair hb 16:56 Acuity: GERMAN 2 hb 17:02 Initial Sepsis Screen: Does the patient meet any 2 criteria? No. Patient's initial ph sepsis screen is negative. Does the patient have a suspected source of infection? Yes: Productive cough/pneumonia. Triage Assessment: 19:00 Respiratory: Onset: The symptoms/episode began/occurred gradually, the patient has mild wh shortness of breath. Historical: - Allergies: 16:57 IV iodine contrast; hb 16:57 PENICILLINS; hb - Home Meds: 16:57 Advair Diskus 250-50 mcg/dose Inhl dsdv 1 puff 2 times per day [Active]; amitriptyline hb 25 mg Oral tab 1 tab once daily [Active]; citalopram 40 mg tab 1 tab once daily [Active]; montelukast 10 mg Oral tab 1 tab once daily [Active]; omeprazole 40 mg Oral cpDR 1 cap once daily [Active]; Spiriva Respimat 2.5 mcg/actuation inhalation mist 2 puffs once daily [Active]; - PMHx: 16:57 Asthma; Emphysema; hb - Immunization history:: Adult Immunizations up to date. - Social history:: Smoking status: Patient/guardian denies using tobacco. - Ebola Screening: : No symptoms or risks identified at this time. Screenin:01 Abuse screen: Denies threats or abuse. Denies injuries from another. Nutritional ph screening: No deficits noted. Tuberculosis screening: No symptoms or risk factors identified. Fall Risk None identified. Assessment: 17:31 General: Appears in no apparent distress. comfortable, well groomed, Behavior is calm, ph cooperative, appropriate for age, Denies fever, chills. Pain: Denies pain. Neuro: Level of Consciousness is awake, alert, obeys commands, Oriented to person, place, situation. Cardiovascular: Denies chest pain, lightheadedness, nausea, Capillary refill < 3 seconds in bilateral fingers Patient's skin is warm and dry. Rhythm is regular. Respiratory: Reports shortness of breath at rest on exertion cough that is productive, labored breathing Airway is patent Respiratory effort is labored, shallow, pursed lip breathing noted Breath sounds are coarse in mediastinum. GI: No signs and/or symptoms were reported involving the gastrointestinal system. Derm: Skin is intact, Skin is pink, warm \T\ dry. Musculoskeletal: Circulation, motion, and sensation intact. Range of motion: intact in all extremities. 18:18 Reassessment: Patient appears in no apparent distress at this time. Patient and/or tw2 family updated on plan of care and expected duration. Pain level reassessed. Patient is alert, oriented x 3, equal unlabored respirations, skin warm/dry/pink. 18:48 Reassessment: Patient appears in no apparent distress at this time. Patient and/or ph family updated on plan of care and expected duration. Pain level reassessed. Patient is alert, oriented x 3, equal unlabored respirations, skin warm/dry/pink. Pt resting comfortably, work of breathing noted to have improved, VSS, awaiting antibiotics from pharmacy. 19:07 Reassessment: Patient appears in no apparent distress at this time. Patient and/or ph family updated on plan of care and expected duration. Pain level reassessed. Patient is alert, oriented x 3, equal unlabored respirations, skin warm/dry/pink. D/C pending completion of IV antibiotics. 20:32 Reassessment: Patient appears in no apparent distress at this time. No changes from wh previously documented assessment. Patient and/or family updated on plan of care and expected duration. Pain level reassessed. Patient is alert, oriented x 3, equal unlabored respirations, skin warm/dry/pink. Vital Signs: 16:58 BP 143 / 105; Pulse 97; Resp 28; Temp 97.9; Pulse Ox 93% on R/A; Weight 70.31 kg; hb Height 5 ft. 2 in. (157.48 cm); Pain 5/10; 18:18 Pulse 101; Resp 20; Pulse Ox 95% on 2 lpm NC; tw2 18:47 BP 138 / 94; Pulse 102; Resp 22; Pulse Ox 100% on Nebulizer Mask; ph 20:38 BP 109 / 68; Pulse 102; Resp 20; Pulse Ox 96% on 2 lpm NC; wh 16:58 Body Mass Index 28.35 (70.31 kg, 157.48 cm) hb ED Course: 16:54 Patient arrived in ED. mr 16:54 Jarocho Bill, is Private Physician. mr 16:57 Triage completed. hb 16:58 Arm band placed on. hb 17:00 Ester Carey, RN is Primary Nurse. ph 17:01 Patient has correct armband on for positive identification. Placed in gown. Bed in low ph position. Call light in reach. Side rails up X 1. awake overnight monitor on. Pulse ox on. NIBP on. Door closed. Noise minimized. Warm blanket given. 17:04 Dea Mckinnon FNP-C is PHCP. kb 17:04 Moises Reddy MD is Attending Physician. kb 17:19 Initial lab(s) drawn, by me, sent to lab. Inserted saline lock: 22 gauge in left jb1 antecubital area, using aseptic technique. Blood collected. 18:02 Chest Pa And Lat (2 Views) XRAY In Process Unspecified. EDMS 20:38 No provider procedures requiring assistance completed. IV discontinued, intact, wh bleeding controlled, No redness/swelling at site. Administered Medications: 17:30 Drug: Magnesium Sulfate 2 grams Route: IVPB; Infused Over: 2 hrs; Site: left ph antecubital; 18:49 Follow up: Response: No adverse reaction; IV Status: Completed infusion ph 17:30 Drug: DuoNeb (3:1) (2.5 mg - 0.5 mg) 3 ml Route: Nebulizer; ph 18:18 Follow up: Response: No adverse reaction ph 17:31 Drug: SOLU-Medrol 125 mg Route: IVP; Site: left antecubital; ph 18:18 Follow up: Response: No adverse reaction ph 18:43 Drug: Albuterol 2.5 mg Route: Inhalation; ph 19:28 Drug: Zithromax 500 mg Route: IVPB; Infused Over: 1 hrs; Site: left antecubital; 20:39 Follow up: Response: No adverse reaction; IV Status: Completed infusion Outcome: 19:06 Discharge ordered by . kb 20:39 Discharged to home via wheelchair, with family. 20:39 Condition: stable 20:39 Discharge instructions given to patient, family, Instructed on discharge instructions, follow up and referral plans. medication usage, POC COPD and PNA Demonstrated understanding of instructions, follow-up care, medications, POC Prescriptions given X 2. 20:40 Patient left the ED. Signatures: Dispatcher [employer] EDMS Peewee Wan jb1 Dea Mckinnon, PHOTOGRAPHY PROFESSOR-C PHOTOGRAPHY PROFESSOR-Calli DanielsLilia garcia Ester Carey, RN RN Lesia Ohara RN RN Judit Brandon RN RN tw2 Charly Arias Corrections: (The following items were deleted from the chart) 16:59 16:58 BP 143 / 105; Pulse 97bpm; Resp 28bpm; Pulse Ox 95% RA; Temp 97.9F; 70.31 kg; hb Height 5 ft. 2 in.; BMI: 28.3; Pain 5/10; hb 17:33 17:31 Musculoskeletal: Circulation, motion, and sensation intact. Range of motion: ph limited in all extremities, ph
--- NOTE | 2019-03-13 19:07 | EDPHYS ---
Physician Documentation [facility] Name: Gissel Morejon Age: 74 yrs Sex: Female : 1945 Arrival Date: 03/13/2019 Time: 16:54 Bed 6 Private MD: Jarocho Bill Physician Moises Reddy HPI: 03/13 17:42 This 74 yrs old Female presents to ER via Wheelchair with complaints of kb Breathing Difficulty. 17:42 The patient has shortness of breath at rest. Onset: The symptoms/episode began/occurred kb 1 week(s) ago. Duration: The symptoms are continuous. The patient's shortness of breath is aggravated by exertion, light activity. Associated signs and symptoms: Pertinent positives: non-productive cough. Severity of symptoms: At their worst the symptoms were moderate in the emergency department the symptoms are unchanged. The patient has not experienced similar symptoms in the past. The patient has not recently seen a physician. Pt reports she started with a cold for a while and then last week started having shortness of breath. Was seeing Dr Landers for routine follow up today and he told her to come to the ER for evaluation. Historical: - Allergies: 16:57 IV iodine contrast; hb 16:57 PENICILLINS; hb - Home Meds: 16:57 Advair Diskus 250-50 mcg/dose Inhl dsdv 1 puff 2 times per day [Active]; amitriptyline hb 25 mg Oral tab 1 tab once daily [Active]; citalopram 40 mg tab 1 tab once daily [Active]; montelukast 10 mg Oral tab 1 tab once daily [Active]; omeprazole 40 mg Oral cpDR 1 cap once daily [Active]; Spiriva Respimat 2.5 mcg/actuation inhalation mist 2 puffs once daily [Active]; - PMHx: 16:57 Asthma; Emphysema; hb - Immunization history:: Adult Immunizations up to date. - Social history:: Smoking status: Patient/guardian denies using tobacco. - Ebola Screening: : No symptoms or risks identified at this time. ROS: 17:39 Constitutional: Negative for fever, chills, and weight loss, Neck: Negative for injury, kb pain, and swelling, Cardiovascular: Negative for chest pain, palpitations, and edema, Abdomen/GI: Negative for abdominal pain, nausea, vomiting, diarrhea, and constipation, Back: Negative for injury and pain, MS/Extremity: Negative for injury and deformity, Skin: Negative for injury, rash, and discoloration, Neuro: Negative for headache, weakness, numbness, tingling, and seizure. 17:39 ENT: Positive for rhinorrhea, sinus congestion. 17:39 Respiratory: Positive for cough, with no reported sputum, dyspnea on exertion, shortness of breath, wheezing, Negative for hemoptysis, orthopnea, pleurisy. Exam: 17:39 Constitutional: This is a well developed, well nourished patient who is awake, alert, kb and in no acute distress. Head/Face: Normocephalic, atraumatic. ENT: Nares patent. No nasal discharge, no septal abnormalities noted. Tympanic membranes are normal and external auditory canals are clear. Oropharynx with no redness, swelling, or masses, exudates, or evidence of obstruction, uvula midline. Mucous membranes moist. Neck: Trachea midline, no thyromegaly or masses palpated, and no cervical lymphadenopathy. Supple, full range of motion without nuchal rigidity, or vertebral point tenderness. No Meningismus. Chest/axilla: Normal chest wall appearance and motion. Nontender with no deformity. No lesions are appreciated. Cardiovascular: Regular rate and rhythm with a normal S1 and S2. No gallops, murmurs, or rubs. Normal PMI, no JVD. No pulse deficits. Abdomen/GI: Soft, non-tender, with normal bowel sounds. No distension or tympany. No guarding or rebound. No evidence of tenderness throughout. Back: No spinal tenderness. No costovertebral tenderness. Full range of motion. Skin: Warm, dry with normal turgor. Normal color with no rashes, no lesions, and no evidence of cellulitis. MS/ Extremity: Pulses equal, no cyanosis. Neurovascular intact. Full, normal range of motion. Neuro: Awake and alert, GCS 15, oriented to person, place, time, and situation. Cranial nerves II-XII grossly intact. Motor strength 5/5 in all extremities. Sensory grossly intact. Cerebellar exam normal. Normal gait. 17:39 Respiratory: mild respiratory distress is noted, Respirations: labored breathing, that is moderate, Breath sounds: rhonchi, that are moderate, are scattered, wheezing: expiratory that is moderate, is heard diffusely. Vital Signs: 16:58 BP 143 / 105; Pulse 97; Resp 28; Temp 97.9; Pulse Ox 93% on R/A; Weight 70.31 kg; hb Height 5 ft. 2 in. (157.48 cm); Pain 5/10; 18:18 Pulse 101; Resp 20; Pulse Ox 95% on 2 lpm NC; tw2 18:47 BP 138 / 94; Pulse 102; Resp 22; Pulse Ox 100% on Nebulizer Mask; ph 20:38 BP 109 / 68; Pulse 102; Resp 20; Pulse Ox 96% on 2 lpm NC; wh 16:58 Body Mass Index 28.35 (70.31 kg, 157.48 cm) hb MDM: 17:04 Patient medically screened. kb 17:42 Data reviewed: vital signs, nurses notes. Data interpreted: Pulse oximetry: on room air kb is 93 %. Interpretation: acceptable. 18:26 ED course: Pt states she is feeling better and is ready to go home now. kb 19:03 Counseling: I had a detailed discussion with the patient and/or guardian regarding: the kb historical points, exam findings, and any diagnostic results supporting the discharge/admit diagnosis, lab results, radiology results, the need for outpatient follow up, a family practitioner, to return to the emergency department if symptoms worsen or persist or if there are any questions or concerns that arise at home. 12 17:09 Order name: CBC with Diff kb 03/13 17:09 Order name: Basic Metabolic Panel; Complete Time: 17:47 kb 03/13 17:42 Order name: Chest Pa And Lat (2 Views) XRAY; Complete Time: 18:18 kb 03/13 18:26 Order name: Blood Culture Adult (2) kb 03/13 17:09 Order name: IV Start; Complete Time: 17:19 kb Administered Medications: 17:30 Drug: Magnesium Sulfate 2 grams Route: IVPB; Infused Over: 2 hrs; Site: left ph antecubital; 18:49 Follow up: Response: No adverse reaction; IV Status: Completed infusion ph 17:30 Drug: DuoNeb (3:1) (2.5 mg - 0.5 mg) 3 ml Route: Nebulizer; ph 18:18 Follow up: Response: No adverse reaction ph 17:31 Drug: SOLU-Medrol 125 mg Route: IVP; Site: left antecubital; ph 18:18 Follow up: Response: No adverse reaction ph 18:43 Drug: Albuterol 2.5 mg Route: Inhalation; ph 19:28 Drug: Zithromax 500 mg Route: IVPB; Infused Over: 1 hrs; Site: left antecubital; wh 20:39 Follow up: Response: No adverse reaction; IV Status: Completed infusion Disposition: 03/14 07:18 Co-signature as Attending Physician, Moises Reddy MD I agree with the assessment and kdr plan of care. Disposition: 03/13/19 19:06 Discharged to Home. Impression: Pneumonia, unspecified organism, Chronic obstructive pulmonary disease with (acute) exacerbation. - Condition is Stable. - Discharge Instructions: Chronic Obstructive Pulmonary Disease Exacerbation, Community-Acquired Pneumonia, Adult, [id number]. - Prescriptions for Prednisone 20 mg Oral Tablet - take 1 tablet by ORAL route once daily for 5 days; 5 tablet. Zithromax 500 mg Oral Tablet - take 1 tablet by ORAL route once daily for 5 days; 5 tablet. - Medication Reconciliation Form, Thank You Letter, Antibiotic Education, Prescription Opioid Use form. - Follow up: Private Physician; When: 2 - 3 days; Reason: Recheck today's complaints, Continuance of care, Re-evaluation by your physician. Follow up: Emergency Department; When: As needed; Reason: Worsening of condition. Signatures: Dispatcher [employer] EDDC Dea Mckinnon, [employer] SENIOR BIOINFORMATICS SPECIALIST-Moises Feliciano MD MD [facility] Ester Carey RN RN Lesia Ohara RN RN Charly Arias Corrections: (The following items were deleted from the chart) 03/13 20:40 19:06 03/13/2019 19:06 Discharged to Home. Impression: Pneumonia, unspecified organism; wh Chronic obstructive pulmonary disease with (acute) exacerbation. Condition is Stable. Forms are Medication Reconciliation Form, Thank You Letter, Antibiotic Education, Prescription Opioid Use. Follow up: Private Physician; When: 2 - 3 days; Reason: Recheck today's complaints, Continuance of care, Re-evaluation by your physician. Follow up: Emergency Department; When: As needed; Reason: Worsening of condition. kb
[2019-03-14 06:44] VITALS: TEMP 97.9
[2019-03-14 06:49] VITALS: BP 109/68; O2SAT 96
== END 2019-03-13 20:40 | disposition home or self-care (01) ==
LOC: ER 16:51
DX: J18.9 Pneumonia, unspecified organism (principal); J44.1 Chronic obstructive pulmonary disease with (acute) exacerbation; Z88.0 Allergy status to penicillin
CPT/HCPCS: 96365; 96367; 87040 ×2; 85025; 80048; 36415; 71046; 94640; 96375; 99285; J0456; J3475; J7030; J2930